=== PATIENT | male | born 1935 ===

== ENCOUNTER 2018-03-24 08:20 | Day surgery (SDC) | payer MEDICARE ==
[2018-03-13 11:51] VITALS: BMI 28.8
[2018-03-24 08:58] VITALS: RESP 18
[2018-03-24] MEDS ORDERED: Propofol 10 mg/ml Inj (20 ML) ONE (09:47)
[2018-03-24] MEDS ORDERED: Midazolam 2 MG/2 ML VIAL ONE (09:48)
[2018-03-24] MEDS ORDERED: Lidocaine 1% 5ml Abboject ONE (09:48)
[2018-03-24] MEDS ORDERED: Lidocaine 2% Jelly (5 ml) TOP ONE (09:49)
[2018-03-24] MEDS ORDERED: cefTRIAXone (Rocephin) 1 gm Inj ONE (10:21)
[2018-03-24] MEDS ORDERED: Succinylcholine 200 mg/10 ml Inj IV ONE (10:45)
[2018-03-24] MEDS ORDERED: Lactated Ringer's 1,000 ML IV ONE (10:48)
[2018-03-24] MEDS ORDERED: cefTRIAXone (Rocephin) 1 gm Inj IVPB ONE (10:55)
[2018-03-24] MEDS ORDERED: Lactated Ringer's 1,000 ML IV SCH (12:30)
[2018-03-24 17:22] VITALS: BP 118/72; PULSE 72; TEMP 98; O2SAT 97
--- NOTE | 2018-03-24 21:50 | OP ---
PROCEDURE DATE: 03/24/2018 PREOPERATIVE DIAGNOSIS: Benign prostatic hypertrophy. POSTOPERATIVE DIAGNOSIS: Benign prostatic hypertrophy. PROCEDURE PERFORMED: GreenLight laser of the prostate. SURGEON: Leela De Los Santos MD DESCRIPTION OF PROCEDURE: The patient was placed on the operating room table in dorsal lithotomy position, and given general anesthesia. The area of the groin was draped and prepped at this time using a laser scope, entered into the bladder atraumatically; however, initially, there was some bleeding noted once I started to demarcate the prostate with the laser. We were able to work our way through this bleeding, but I estimated probably total blood loss of 100 mL. The prostate was adequately lased, used approximately 225,000 joules of energy to accomplish the procedure. At the end of the procedure, the verumontanum appeared circumferentially intact. A #22 three-way Almaraz catheter was inserted, initial CBI, outflow was light pink. The patient was taken from the operating room in good condition. Leela De Los Santos MD
== END 2018-03-24 17:45 | disposition home or self-care (01) ==
LOC: H.OPSURG 08:20
PROVIDERS: ATTEND Urology
DX: N40.0 Benign prostatic hyperplasia without lower urinary tract symptoms (principal); J45.909 Unspecified asthma, uncomplicated; E78.5 Hyperlipidemia, unspecified; I10 Essential (primary) hypertension; E66.9 Obesity, unspecified; E55.9 Vitamin D deficiency, unspecified; G30.9 Alzheimer's disease, unspecified; F02.80 Dementia in other diseases classified elsewhere, unspecified severity, without behavioral disturbance, psychotic disturbance, mood disturbance, and anxiety
CPT/HCPCS: 52648; J0330; J0696; J2250; J2270; J2704; J2765; J3010; J7030; J7120